=== PATIENT | female | born 1975 | race Caucasian/White ===

== ENCOUNTER 2023-12-17 14:31 | Emergency (ER) | payer SELFPAY ==
[2023-12-17 14:34] VITALS: BP 144/107
--- NOTE | 2023-12-17 14:47 | ED.SKININJ ---
HPI-Injury
General
Chief Complaint: Skin Surface Trauma
Source: patient
Exam Limitations: none
Time Seen by Provider: 12/17/23 14:40
History of Present Illness-Injury
Initial Injury comments:
48-year-old female presents complaining of laceration to the left griffin she sustained today. She was walking in her garden and a wood stake with piece of metal at the end punctured her left griffin. She is concerned about potential foreign body. Last
tetanus unknown. No other complaints at this time
Phy Exam
Physical Exam
Physical Exam:
General: Well-appearing female no acute respiratory distress skin:
4 cm flap type laceration fairly deep to the anterior medial left griffin. No visible or palpable foreign bodies upon initial inspection no significant bleeding
Musculoskeletal exam: Good range of motion left ankle
Course
Orders/Labs/Results
Orders:
Orders
12/17/23 14:46
Tetanus/Diphth/Acelpertussis [Adacel] 0.5 ml IM .ONCE ONE
CR Leg Tibia/fibula Left 2 Vw Urgent
Comment:
Reason For Exam: laceration, eval for foreign body
Vital Signs
Initial and Last Documented VS:
Initial Vital Signs
Temp Pulse Resp BP Pulse Ox
97.9 F 98 16 144/107 100
12/17/23 14:34 12/17/23 14:34 12/17/23 14:34 12/17/23 14:34 12/17/23 14:34
Last Documented Vital Signs
Temp Pulse Resp BP Pulse Ox
97.9 F 98 16 144/107 100
12/17/23 14:34 12/17/23 14:34 12/17/23 14:34 12/17/23 14:34 12/17/23 14:34
Procedures
Laceration Closure
Left Anterior Leg:
Status of Wound: clean
Description of Wound Edges: ragged and flap-well vascularized
Preparation: cleaned with saline
Anesthesia: 1% Lidocaine with epi
Revision/Debridement: minor revision
Wound exploration: explored to base- no FB
Type of Closure: layered closure and interrupted sutures
Skin Closure Material: 4-0 prolene and 4-0 vicryl
Number of sutures: 11
MDM/Problems Addressed
Differential Diagnosis Includes:
Puncture wound/laceration to left anterior medial griffin. Question possible foreign body or bony involvement. X-rays pending.
*Critical Care Note
Total Time (30-74mins, 75-104mins- exclusive of procedures): Not Applicable
Update Note
Update Note:
X-rays personally visualized and are negative for acute bony abnormality or foreign body. The wound was copiously irrigated with saline solution and closed in a layered fashion using 4-0 Vicryl for the subcutaneous tissue and 4-0 Prolene for the
skin. Dressing was applied tetanus vaccine updated. Will start antibiotics for prophylaxis secondary to nature of wound.
ED Attending Note
-
Portions of this chart may have been created with voice recognition software.� Occasional wrong word or��sound alike� substitutions may have occurred due to the inherent limitations of voice recognition software.
Discharge Plan
Departure
Patient Disposition: Home (Routine Discharge)
Date of Disposition: 12/17/23
Time of Disposition: 16:16
Patient with high blood pressure during this ER visit?: No
Discharge Problem:
Laceration
Instructions: Laceration Repair With Stitches (DC)
Prescriptions:
New
cephalexin 500 mg capsule
500 mg PO BID 14 Days Qty: 28 0RF
Referrals:
Mauricio Martinez MD [Family Provider] -
Activity Restrictions/Additional Instructions:
Keep clean. Change dressing with antibacterial ointment daily. Have sutures removed in approximately 12 days. Take antibiotics as directed
Interventions
Interventions:
*Risk Screen - Suicide Last Done: 12/17/23 14:35
*General Assessment Last Done: 12/17/23 14:35
*Neglect/Abuse Screening Last Done: 12/17/23 14:35
ED- Fall Risk Assessment Last Done: 12/17/23 15:32
ED-Skin Assessment Last Done: 12/17/23 14:45
Discharge Date and Time
Print Language: ESTONIAN
[2023-12-17] MEDS: ADACEL 0.5 ML IM (15:21)
--- NOTE | 2023-12-17 16:38 | EDRN ---
Reviewed discharge instructions with patient. Verbalized understanding. Ambulated with steady gait to the bathroom.
[2023-12-17 16:39] VITALS: BP 121/83
== END 2023-12-17 16:35 | disposition home or self-care (01) ==
LOC: EMR 14:31
PROVIDERS: EMERGENCY PHYSICIAN Student in an Organized Health Care Education/Training Program; FAMILY PHYSICIAN Internal Medicine
DX: S81.812A Laceration without foreign body, left lower leg, initial encounter (principal); Y93.01 Activity, walking, marching and hiking; Z23 Encounter for immunization
CPT/HCPCS: 99283; 12001; 90471; 73590; 90715